=== PATIENT | female | born 1960 | race American Indian/Alaskan Native ===

== ENCOUNTER 2019-01-04 06:38 | Day surgery (SDC) | payer OTHER ==
[2019-01-04] MEDS ORDERED: NACL 0.9% 1000 ML 1,000 ML IV SCH (08:00)
[2019-01-04] MEDS ORDERED: DIPRIVAN 10 MG/ML IV ONE ×2 (08:13→08:42)
--- NOTE | 2019-01-04 09:01 | Short Stay Summary ---
Short Stay Documentation - Allergies and Medications Current Medications: Allergies morphine Allergy (Intermediate, Verified 01/04/19 07:38) Itching Home Medications Medication Instructions Recorded Confirmed Last Taken Type Glucosamine-Chondroitin 1 tab PO BID 01/04/19 01/04/19 01/03/19 History Multivitamin 1 tab PO DAILY 01/04/19 01/04/19 01/02/19 History Active Medications Sodium Chloride (Nacl 0.9% 1000 Ml) 1,000 mls @ 50 mls/hr IV DIRECT MARINO Last Admin: 01/04/19 07:57 Dose: 50 mls/hr Documented by: - Brief post op/procedure progress note Date of procedure: 01/04/19 Pre-op diagnosis: Colon cancer screimg Post-op diagnosis: same (1.Internal hemorrhoids 2. Rectal polyps) Procedure: Colonoscopy with cold biopsy polypectomy Anesthesia: MAC Findings: as above Surgeon: DEBBI ALEJANDRO Estimated blood loss: none Pathology: list (Rectal polyp) Specimen disposition: to lab Condition: stable - Disposition Condition at discharge: Stable Disposition: DC-01 TO HOME OR SELFCARE Short Stay Discharge Plan Activity: no restrictions Weight Bearing Status: Full Weight Bearing Diet: regular, low salt Follow up with: SO BURGESS DO [Primary Care Provider] - 7 Days
[2019-01-04 09:33] VITALS: BP 135/67
== END 2019-01-04 06:39 | disposition home or self-care (01) ==
LOC: GIO 06:38
PROVIDERS: ATTEND Internal Medicine Gastroenterology
DX: Z12.11 Encounter for screening for malignant neoplasm of colon (principal); K62.1 Rectal polyp; K64.0 First degree hemorrhoids; K64.8 Other hemorrhoids; Z79.899 Other long term (current) drug therapy; Z88.5 Allergy status to narcotic agent; Z98.891 History of uterine scar from previous surgery
CPT/HCPCS: 45380; 88305; J2704; J7030

== ENCOUNTER 2021-04-22 08:09 | Day surgery (SDC) | payer OTHER ==
[~2021-04-22 08:09] MED LIST: ceFAZolin/STERILE WATER 2 GM/20 ML SYRINGE IV NR
[2021-04-22] MEDS ORDERED: LACTATED RINGERS 1,000 ML IV SCH (11:00)
[2021-04-22] MEDS ORDERED: LIDOCAINE (1%) 10 MG/1 ML VIAL 20 ML MDV ONE (11:08)
[2021-04-22] MEDS ORDERED: MAGNESIUM OXIDE 400 MG TAB PO ONE (12:34)
[2021-04-22] MEDS ORDERED: fentaNYL 100 MCG/2 ML INJ IV ONE (12:34)
[2021-04-22] MEDS ORDERED: ONDANSETRON 4 MG/2 ML INJ IV PRN (12:34)
[2021-04-22] MEDS ORDERED: HYDROmorphone 1 MG/1 ML INJ IV PRN (12:34)
[2021-04-22] MEDS ORDERED: ACETAMINOPHEN 500 MG TAB PO ONE (12:34)
--- NOTE | 2021-04-22 12:36 | Anesthesia Day of Surgery ---
Anesthesia Day of Surgery - Day of Surgery Patient Examined: Yes Patient H&P Reviewed: Yes Patient is NPO: Yes
--- NOTE | 2021-04-22 12:36 | Anesthesia Consultation ---
Anesthesia Consult and Med Hx Date of service: 04/22/21 - Airway Anesthetic Teeth Evaluation: Good ROM Head & Neck: Adequate Mental/Hyoid Distance: Adequate Mallampati Class: Class II Intubation Access Assessment: Good - Pre-Operative Health Status ASA Pre-Surgery Classification: ASA3 Proposed Anesthetic Plan: General - Pulmonary Hx Smoking: No Hx Sleep Apnea: No - Central Nervous System Hx Psychiatric Problems: No - Hematic Hx Anemia: No Hx Sickle Cell Disease: No - Other Systems Hx Alcohol Use: No Hx Substance Use: No Hx Cancer: No Hx Obesity: Yes (Morbid)
[2021-04-22] MEDS ORDERED: CELECOXIB 200 MG CAP PO NR (13:00)
[2021-04-22] MEDS ORDERED: MIDAZOLAM 2 MG/2 ML INJ IV NR (13:00)
[2021-04-22] MEDS ORDERED: BUPIVACAINE/PF (0.25%) 2.5 MG/ML 30 ML VIAL INFILTRATI ONE (13:19)
[2021-04-22] MEDS ORDERED: dexAMETHasone 4 MG/ML VIAL ONE (13:19)
[2021-04-22] MEDS ORDERED: propofoL 200 MG/20 ML VIAL IV ONE (13:54)
[2021-04-22] MEDS ORDERED: HYDROmorphone 1 MG/1 ML INJ ONE (13:54)
[2021-04-22] MEDS ORDERED: LIDOCAINE MPF (2%) 20 MG/1 ML VIAL 5 ML ONE (13:55)
--- NOTE | 2021-04-22 14:05 | Short Stay Summary ---
Short Stay Documentation Date of service: 04/22/21 - History H&P: obtained from office - Allergies and Medications Current Medications: Allergies morphine Allergy (Intermediate, Verified 04/14/21 16:20) Itching Home Medications Medication Instructions Recorded Confirmed Last Taken Type Glucosamine-Chondroitin 1 tab PO BID 01/04/19 04/14/21 04/21/21 History Multivitamin 1 tab PO DAILY 01/04/19 04/14/21 04/21/21 History Valacyclovir HCl [Valacyclovir] 500 mg PO PRN PRN 04/14/21 04/22/21 04/15/21 History Ibuprofen [Motrin 800 MG tab] 800 mg PO Q8HR PRN #10 tablet 04/22/21 Unknown Rx Active Medications Cefazolin Sodium (Cefazolin/Sterile Water 2 Gm/20 Ml Syringe) 2 gm IV PREOP NR Stop: 04/23/21 23:59 Celecoxib (Celecoxib 200 Mg Cap) 200 mg PO PREOP NR Stop: 04/22/21 23:59 Last Admin: 04/22/21 12:50 Dose: 200 mg Documented by: Hydromorphone HCl (Hydromorphone 1 Mg/1 Ml Inj) 0.25 mg IV Q10MIN PRN PRN Reason: Pain, Moderate (4-6) Stop: 04/22/21 23:59 Hydromorphone HCl (Hydromorphone 1 Mg/1 Ml Inj) 0.5 mg IV Q10MIN PRN PRN Reason: Pain , Severe (7-10) Stop: 04/22/21 23:59 Lactated Ringer's (Lactated Ringers) 1,000 mls @ 100 mls/hr IV DIRECT MARINO Last Admin: 04/22/21 12:27 Dose: 100 mls/hr Documented by: Midazolam HCl (Midazolam 2 Mg/2 Ml Inj) 2 mg IV PREOP NR Stop: 04/22/21 23:59 Last Admin: 04/22/21 13:29 Dose: 2 mg Documented by: Ondansetron HCl (Ondansetron 4 Mg/2 Ml Inj) 4 mg IV ONCE PRN PRN Reason: Nausea And Vomiting - Brief post op/procedure progress note Date of procedure: 04/22/21 Pre-op diagnosis: Right breast masses upper inner and upper outer quadrant Post-op diagnosis: same Procedure: Right needle localization excisional biopsyx2 Anesthesia: GETA Findings: Wires and clips present Surgeon: ARY NEWMAN Estimated blood loss: minimal Pathology: list Specimen disposition: to lab Condition: stable - Disposition Condition at discharge: Good Disposition: DC- TO HOME OR SELFCARE Short Stay Discharge Plan Activity: other (no heavy lifting) Diet: regular Wound: keep clean and dry (wear breast binder; may shower in 48 hours, no baths, pools or lakes) Follow up with: ARY NEWMAN MD [Staff Physician] - 7 Days Prescriptions: RX: Ibuprofen [Motrin 800 MG tab] 800 mg PO Q8HR PRN #10 tablet PRN Reason: Pain , Severe (7-10)
--- NOTE | 2021-04-22 14:09 | Operative Report ---
Operative Report Operative Report: Operative Report: April 22, 2021 Preoperative diagnosis: Right breast mass of the upper outer quadrant and upper inner quadrant Postoperative diagnosis: Same Procedure: Right needle localization breast mass excisional biopsy of the upper outer quadrant and upper inner quadrant Surgeon: Christina Michaels MD Furniture Builder: Iftikhar Velásquez MD Anesthesia: General Findings: Right wires and clips present within radiograph specimen Complications: None EBL: Minimal (less than 25 cc) Disposition: PACU in good condition Indications for operative procedure: This is a 60 year old lady with recent abnormal right mammogram of suspicious microcalcifications. Recent stereotactic breast biopsy performed with findings of 2 sclerotic papillomas of the upper outer and upper inner quadrant. Recommendations are to proceed with right breast excisional biopsy of both lesions to rule out malignancy. She wished to proceed with the above procedure. Procedure in detail: The patient was taken to radiology for wire placement for localization known area of concern. Anesthesia then placed right pectoral block. Patient was then taken to the operating room. Gen. anesthesia was administered. Right breast and axilla were prepped and draped in the normal sterile operative fashion. The wires were identified. Timeout was performed. Attention was then taken towards the right breast. Attention was taken towards the lesion of the upper inner quadrant, a 2:00 position periareolar breast incision was made with a 15 blade knife and dissection taken down to subcutaneous tissues. First began raising of the superior flap with removal of the wire from the skin with dissection taken down posteriorly past the wire-past the area of concern, followed by raising of the inferior flap, medial flap and lateral flap with all flaps taken down posteriorly past the wire and past the area of concern. The b reast area of concern was appropriately removed posteriorly with the aid of the Bovie cautery. The wire was not encountered. Specimen was marked and then sent to pathology and radiology; radiograph specimen with wire and clip present. Breast cavity was irrigated and hemostasis was obtained. The posterior deep breast tissues were approximated and closed using interrupted 3-0 Vicryl. The subcutaneous tissues were approximated and closed using interrupted 3-0 Vicryl followed by closing of the skin with a running 4-0 Monocryl and skin affix. Attention was then taken towards the second lesion of the upper outer quadrant, a 9:00 position periareolar breast incision was made with a 15 blade knife and dissection taken down to subcutaneous tissues. First began raising of the superior flap with removal of the wire from the skin with dissection taken down posteriorly past the wire-past the area of concern, followed by raising of the inferior flap, medial flap and lateral flap with all flaps taken down posteriorly past the wire and past the area of concern. The breast area of concern was appropriately removed posteriorly with the aid of the Bovie cautery. The wire was not encountered. Specimen was marked and then sent to pathology and radiology; radiograph specimen with wire and clip present. Breast cavity was irrigated and hemostasis was obtained. The posterior deep breast tissues were approximated and closed using interrupted 3-0 Vicryl. The subcutaneous tissues were approximated and closed using interrupted 3-0 Vicryl followed by closing of the skin with a running 4-0 Monocryl and skin affix. The patient tolerated surgery very well and she was awaken from anesthesia without any complication and transported to PACU in good condition.
[2021-04-22] MEDS ORDERED: ONDANSETRON 4 MG/2 ML INJ ONE (15:58)
[2021-04-22] MEDS: HYDROmorphone 1 MG/1 ML INJ IV PRN ×2 (16:12→16:20)
[2021-04-22 17:17] VITALS: BP 135/74
--- NOTE | 2021-04-22 18:22 | Post Anesthesia Evaluation ---
- Post Anesthesia Evaluation Patient Participated: Yes Airway Patent: Yes Stable Respiratory Function: Yes Nausea/Vomiting: No Temp > 96.8F: Yes Pain Manageable: Yes Adequeate Hydration: Yes Anesthesia Complications: No Block Receding Appropriately: Not Applicable Patient on Ventilator: No
== END 2021-04-22 18:10 | disposition home or self-care (01) ==
LOC: OR 08:09
PROVIDERS: ATTEND Surgery
DX: N63.11 Unspecified lump in the right breast, upper outer quadrant (principal); N63.12 Unspecified lump in the right breast, upper inner quadrant; E66.9 Obesity, unspecified; M19.90 Unspecified osteoarthritis, unspecified site; Z98.891 History of uterine scar from previous surgery; Z88.5 Allergy status to narcotic agent; Z79.899 Other long term (current) drug therapy; Z68.38 Body mass index [BMI] 38.0-38.9, adult
CPT/HCPCS: 19125; 19126; 19281; 19282; 76098; 88307; A4648; J0690; J1100; J1170; J2250; J2405; J2704; J3010; J7120